=== PATIENT | female | born 1975 | race Caucasian/White ===

== ENCOUNTER → 2016-04-23 | Outpatient (CLI) | payer OTHER ==
[~2016-04-23] MED LIST: CARB200T PO; FRRS300 PO; MGN PO; PRENTAB26 PO; [UNRECOGNIZED DRUG - OTHER] PO; [UNRECOGNIZED DRUG - OTHER] PO; [UNRECOGNIZED DRUG - OTHER] PO; [UNRECOGNIZED DRUG - OTHER] PO; [UNRECOGNIZED DRUG - OTHER] PO
[2016-04-23 18:29] LABS: ALT/SGPT 20 U/L (12-78); AST/SGOT 14 U/L (15-37); BLOOD UREA NITROGEN 14 mg/dl (7-18); CALCIUM 8.7 mg/dl (8.5-10.1); CARBON DIOXIDE 27 mmol/L (21-32); CHLORIDE 106 mmol/L (98-107); GLUCOSE 78 mg/dl (70-99); POTASSIUM 3.8 mmol/L (3.5-5.1); SODIUM 141 mmol/L (136-145)
[2016-04-23 18:39] LABS: ALB/GLOB RATIO 1.3 (0.9-2); ALKALINE PHOSPHATASE 52 U/L (45-117); THYROID STIMULATING HORMONE 0.928 uIu/ml (0.300-4.500)
== END | disposition home or self-care (01) ==
LOC: C.LAB 17:09
PROVIDERS: ATTEND Family Medicine
DX: R53.83 Other fatigue (principal); F41.9 Anxiety disorder, unspecified; E87.6 Hypokalemia

== ENCOUNTER → 2016-08-09 | Outpatient (CLI) | payer OTHER ==
--- NOTE | 2016-08-09 18:52 | DIAGNOSTIC IMAGING REPORT ---
RIGHT FINGER(S) MIN 2 VIEWS ROUTINE CLINICAL HISTORY: FRACTURE OF UNSPECIFIED PHALANX OF R RIGHT FINGER Right trauma. Pain. COMPARISON: None. DISCUSSION: Nondisplaced small cortical fracture base middle phalanx right fourth finger. Mild soft tissue edema. All remaining osseous structures are unremarkable. No evidence for dislocation. IMPRESSION: Nondisplaced small cortical fracture base middle phalanx right fourth finger. Electronically signed by: Sung Leyva M.D. 08/09/2016 6:51 PM Dictated Date/Time: 08/09/2016 6:50 PM
== END | disposition home or self-care (01) ==
LOC: C.RAD 18:24
PROVIDERS: ATTEND Family Medicine
DX: S62.654A Nondisplaced fracture of middle phalanx of right ring finger, initial encounter for closed fracture (principal); X58.XXXA Exposure to other specified factors, initial encounter